=== PATIENT | female | born 1975 | race Caucasian/White ===

== ENCOUNTER → 2019-01-05 17:34 | Outpatient (CLI) | payer OTHER, SELFPAY ==
--- NOTE | 2019-01-05 | DI.MRI.S_ITS ---
PROCEDURE: MR LUMBAR SPINE WO CON INDICATIONS: LOW BACK PAIN TECHNIQUE: Noncontrast sagittal T1 spin echo and T2 fast echo, sagittal STIR, axial T1 and T2 fast spin echo through the lumbar spine. In cases with scoliosis, additional coronal T2 fast spin echo may be performed. COMPARISON: None. FINDINGS: Image quality: Excellent. Alignment and Curvature: There is normal bony alignment. Bone Marrow: Marrow is of normal overall signal. No acute vertebral body compression fractures. Spinal Cord: Conus medullaris terminates at the L2 level. Visualized cord demonstrates normal signal and size. Paraspinous Soft Tissues: No paravertebral masses. L1-L2: Normal appearance. L2-L3: Normal appearance. L3-L4: Normal appearance. L4-L5: Normal appearance. L5-S1: Slight loss of disc signal. Small central disc protrusion. Focal high intensity zone noted in the posterior left central annulus compatible with a fissure. IMPRESSION: 1. Mild L5-S1 degenerative disc disease. 2. No central stenosis 3. No neural foraminal narrowing. 4. No neural impingement. 5. L5-S1 disc annulus fissure. Dictated by: Sanaz Bravo MD, PhD on 01/06/2019 at 14:11 Approved by: Sanaz Bravo MD, PhD on 01/06/2019 at 14:14
== END ==
PROVIDERS: Family Provider Physician Assistant; PCP Physician Assistant; Visit Provider Family Medicine
DX: M54.5 Low back pain (principal); M51.37 Other intervertebral disc degeneration, lumbosacral region
CPT/HCPCS: 72148